=== PATIENT | female | born 1975 | race Caucasian/White ===

== ENCOUNTER 2016-06-21 15:20 | Outpatient (CLI) | payer OTHER ==
[~2016-06-21 15:20] MED LIST: HYCET1 ML PO
--- NOTE | 2016-06-21 17:21 | DIAGNOSTIC IMAGING REPORT ---
PROCEDURE: MG BILATERAL DIAGNOSTIC W/CAD INDICATION: Bilateral breast discharge, right bloody, left milky. Family history of breast cancer (maternal grandmother, great grandmother, mother and great aunts) TECHNIQUE: CC and MLO digital views of each breast with true-lateral digital view of both breasts. Finally, high-resolution of both breasts ultrasound was performed (18 mHz). COMPARISON: Right mammogram 05/19/2014 and bilateral mammograms 05/12/2014 and 06/01/2011. FINDINGS: MAMMOGRAM: Computer-aided detection applied. Moderately dense parenchymal pattern. The previously noted 1.2 cm parenchymal density in the upper inner quadrant of the right breast now measures 9 mm. There is also a stable 5 mm right subareolar nodule seen on the CC view only. No suspicious pleomorphic microcalcifications. BREAST ULTRASOUND: Right: 5 ml or simple cyst at the 6 o'clock patient position of the right breast corresponding to the mammographic finding. Multiple small clusters of cysts primarily laterally. There are no dilated ducts or intraductal masses. Left: There is a 10 mm simple cyst in the left upper outer quadrant. 7 mm cyst cluster at the a 3 o'clock position. There are no dilated ducts or intraductal masses. IMPRESSION: 1. Resolving 9 mm density in the right upper inner quadrant and negative right breast ultrasound. This most likely represents normal asymmetric parenchyma. 2. No evidence of dilated ducts or intraductal masses bilaterally 3. Small bilateral cysts. 4. Results discussed with the patient RESULT CODE: 2- Benign finding(s). A. A negative report should not delay biopsy if a dominant or clinically suspicious mass is present. 10-15% of cancers are not identified by x-ray. B. A negative report may reinforce clinical impression. C. Adenosis and dense breasts may obscure an underlying neoplasm. D. False positive reports average 6-10%. E.. A yearly screening mammogram is recommended. A reminder letter will be scheduled.
== END 2016-06-21 23:01 | disposition home or self-care (01) ==
LOC: MAM SRH 15:20
DX: N60.02 Solitary cyst of left breast (principal); N60.01 Solitary cyst of right breast